=== PATIENT | male | born 1945 | race Caucasian/White ===

== ENCOUNTER 2019-08-18 14:39 | Outpatient (CLI) | payer OTHER, SELFPAY ==
--- NOTE | 2019-08-18 12:00 | DI.RAD_ITS ---
INDICATION: CYST, L72.9. PALPABLE LUMP. COMPARISON: No exams were available for comparison TECHNIQUE: 2D digital imaging was performed. FINDINGS: Examination of the left forearm reveals a small soft tissue prominence involving the dorsal aspect of the proximal forearm. There is no evidence of a foreign body. No intrinsic bony abnormality is see n. Note is made of severe degenerative changes involving wrist. IMPRESSION:
== END 2019-08-18 14:59 ==
PROVIDERS: PCP Physician Assistant Medical; Visit Provider Physician Assistant Medical
DX: R22.32 Localized swelling, mass and lump, left upper limb (principal); M79.89 Other specified soft tissue disorders; M19.032 Primary osteoarthritis, left wrist
CPT/HCPCS: 73090

== ENCOUNTER 2020-09-19 01:21 | Outpatient (CLI) | payer OTHER, SELFPAY ==
--- NOTE | 2020-09-19 09:58 | DI.RAD_ITS ---
EXAM: XR SHOULDER RT COMPLETE 2+V CLINICAL HISTORY: ARTHRITIS, M13.80. TECHNIQUE: 2D digital imaging was performed. COMPARISON: CR CHEST 2 VIEWS PA,LAT from 04/03/2017 FINDINGS: There is spurring from the AC joint and tip of the acromion. There is also prominent spurring from t he glenoid. A few small subchondral cysts are noted in the region of the greater tuberosity. A calc ification is seen adjacent to the tip of the distal clavicle. IMPRESSION: Degenerative changes. DATA REPOSITORY: RADIATION DOSE DELIVERED:
== END 2020-09-19 01:41 ==
PROVIDERS: PCP Physician Assistant Medical; Visit Provider Orthopaedic Surgery
DX: M19.011 Primary osteoarthritis, right shoulder (principal); M77.8 Other enthesopathies, not elsewhere classified
CPT/HCPCS: 73030

== ENCOUNTER 2020-10-12 10:03 | Outpatient (CLI) | payer OTHER, SELFPAY ==
--- NOTE | 2020-10-12 08:45 | DI.RAD_ITS ---
EXAM: XR HEEL RT OS CALCIS CLINICAL HISTORY: pain. TECHNIQUE: 2D digital imaging was performed. COMPARISON: No exams were available for comparison FINDINGS: BONES: No acute fracture is present. No bony destructive lesion is seen. There is a small plantar ca lcaneal spur. There is a small enthesophyte at the Achilles insertion site. JOINTS: No dislocation present. SOFT TISSUE: Vascular calcifications are present. IMPRESSION: 1. Small calcaneal spur. 2. Atherosclerosis. DATA REPOSITORY: RADIATION DOSE DELIVERED:
== END 2020-10-12 10:23 ==
PROVIDERS: PCP Physician Assistant Medical; Referring Provider Physician Assistant Medical; Visit Provider Orthopaedic Surgery
DX: M77.31 Calcaneal spur, right foot (principal); I70.90 Unspecified atherosclerosis
CPT/HCPCS: 73650

== ENCOUNTER → 2020-12-26 09:37 | Outpatient (BNVA) | payer OTHER, SELFPAY | PROVIDERS: PCP Physician Assistant Medical; Referring Provider Physician Assistant Medical; Visit Provider Student in an Organized Health Care Education/Training Program | DX: M17.11 Unilateral primary osteoarthritis, right knee (principal); M25.561 Pain in right knee | CPT/HCPCS: 99214 ==

== ENCOUNTER 2020-12-26 11:10 | Outpatient (CLI) | payer OTHER, SELFPAY ==
--- NOTE | 2020-12-26 10:45 | DI.RAD_ITS ---
EXAM: XR STANDING ALIGNMENT CLINICAL HISTORY: knee pain. TECHNIQUE: 2D digital imaging was performed. COMPARISON: CR RT HIP COMPLETE AP PELVIS from 07/15/2014 FINDINGS: There is no evidence of acute pelvic fracture. Small calcification off the superior aspect of the gr eater trochanter of the left hip is unchanged from 2014. No significant progression in hip joint spa ce narrowing when compared to 6 years ago. Femurs are intact. There is evidence of ACL surgery in the right knee. Bilateral knee osteoarthriti s noted, more so on the right side and most evident in the medial compartment. Also significant dege nerative changes in the medial compartment of the opposite-left knee. At the level of the ankles had there is degenerative subarticular cyst versus ostial chondral defect in the medial talar dome on the right side and no similar findings in the left talar dome. IMPRESSION: DATA REPOSITORY: RADIATION DOSE DELIVERED:
--- NOTE | 2020-12-26 10:45 | DI.RAD_ITS ---
EXAM: XR KNEE RT 3V AP,LAT,ELAN CLINICAL HISTORY: knee pain. TECHNIQUE: 2D digital imaging was performed. COMPARISON: No exams were available for comparison FINDINGS: There is no evidence of acute fracture. There is evidence of prior ACL surgery with an ACL channel a nd a fastener plate flush with the cortex of the diaphysis-metaphysis junction of the distal right fe mur. There is advanced narrowing of the medial compartment of the knee as well as marginal osteophytes. A dvanced degenerative changes are also noted in the patellofemoral compartment. Moderate degenerative changes in the lateral compartment. There appears to be a joint effusion as seen on the lateral vie w. Vascular calcification in the popliteal artery noted as well as runoff vessels of the calf. IMPRESSION: Advanced degenerative changes in the right knee. Previous right knee ACL surgery. Right knee joint effusion noted. DATA REPOSITORY: RADIATION DOSE DELIVERED:
== END 2020-12-26 11:30 ==
PROVIDERS: PCP Physician Assistant Medical; Referring Provider Physician Assistant Medical; Visit Provider Physician Assistant Surgical
DX: M17.11 Unilateral primary osteoarthritis, right knee (principal); M25.461 Effusion, right knee; M25.561 Pain in right knee
CPT/HCPCS: 73562; 99214; 77073

== ENCOUNTER 2021-01-20 02:02 | Outpatient (CLI) | payer OTHER, SELFPAY ==
[2021-01-21 13:56] LABS: COVID-19 RT-PCR UVMMC Result Negative (Negative)
== END 2021-01-20 02:03 | disposition home or self-care (01) ==
LOC: LBO 02:02
PROVIDERS: PCP Physician Assistant Medical; Visit Provider Student in an Organized Health Care Education/Training Program
DX: Z20.822 Contact with and (suspected) exposure to COVID-19 (principal); Z01.818 Encounter for other preprocedural examination
CPT/HCPCS: U0003

== ENCOUNTER 2021-01-20 02:42 | Outpatient (CLI) | payer OTHER, SELFPAY ==
[2021-01-20 09:37] LABS: HCT 37.2 % (40.0-50.0); HGB 13.1 g/dL (13.5-17.5); MCHC 35.2 % (32.0-36.0); MCV 96.6 fL (80-95); MPV 9.1 fL (8.0-11.0); Platelet Count 137 10^3/uL (130-400); RBC 3.85 10^6/uL (4.36-5.78); RDW 11.6 % (11.8-14.1); RDW-SD 40.7 fL; WBC 4.54 10^3/uL (4.4-10.8)
[2021-01-20 10:09] LABS: Anion Gap 8.5 mmol/L (3-11); BUN 16 mg/dL (7-18); CO2 28.5 mmol/L (21.0-32.0); CREATININE 0.8 mg/dL (0.70-1.30); Calcium 8.6 mg/dL (8.5-10.1); Chloride 105 mmol/L (98-107); Glucose 122 mg/dL (74-106); Potassium 3.9 mmol/L (3.5-5.1); Sodium 142 mmol/L (136-145)
== END 2021-01-20 02:43 | disposition home or self-care (01) ==
LOC: LBO 02:42
PROVIDERS: PCP Physician Assistant Medical; Visit Provider Student in an Organized Health Care Education/Training Program
DX: M25.561 Pain in right knee (principal); M17.11 Unilateral primary osteoarthritis, right knee; Z01.812 Encounter for preprocedural laboratory examination
CPT/HCPCS: 36415; 80048; 85027

== ENCOUNTER 2021-01-24 09:27 | Inpatient (IN) | payer OTHER, SELFPAY ==
[2021-01-24] VITALS (14 sets, daily range): BP systolic 112–184; BP diastolic 63–75; PULSE 45–61; RESP 10–19; TEMP 35–36.5; O2SAT 95–99
[2021-01-24] MEDS: Gabapentin 300 MG CAP PO ×2 (10:47→22:50)
[2021-01-24] MEDS: Celecoxib 200 MG CAP 400 MG PO (10:47)
[2021-01-24] MEDS: Acetaminophen 500 MG TAB 1000 MG PO ×2 (10:47→20:07)
[2021-01-24] MEDS: Lactated Ringers 1,000 ML 80 ML IV ×2 (11:00→20:05)
[2021-01-24] MEDS: ceFAZolin 2 GM/50 ML BAG IVPB (13:12)
[2021-01-24] MEDS: Ketorolac 30 MG/ML VIAL (14:36)
[2021-01-24] MEDS: Bupivacaine 0.25% Pres-Free 30 ML VIAL (14:36)
[2021-01-24] MEDS: Normal Saline 20 ML VIAL (14:36)
[2021-01-24] MEDS: fentaNYL 100 MCG/2 ML VIAL IVP ×2 (16:04→16:16)
[2021-01-24] MEDS: HYDROmorphone 2 MG/ML VIAL IVP (16:33)
--- NOTE | 2021-01-24 17:19 | W.PM.OP ---
Date of service: 01/24/21 Time of Service: 15:09 Operative Note Operative Note DATE OF PROCEDURE: 01/24/21 PRE-OP DIAGNOSIS: Right Knee Osteoarthritis POST-OP DIAGNOSIS: same PROCEDURE: Right Total Knee Replacement SURGEON: Zackery Oconnor [facility] OT: Pratima Rubio ANESTHESIA TYPE: Spinal Refer to Anesthesia Record ESTIMATED BLOOD LOSS: 300 PATHOLOGY: none sent TOURNIQUET TIME: 0 COMPLICATIONS: None Patient was transported to: PACU Patient's condition: stable Implants: 1. Depuy Attune Cementless Cruciate Retaining Femoral Component, Size 6 2. Depuy Attune Cementless Rotating Platform Tibial Component, Size 5 3. Depuy Attune 6x6 CR/RP Poly 4. Depuy Attune Patellar Component, Size 38mm Indications: I have seen Chaparro in clinic for symptoms of knee arthritis, confirmed with radiographic findings. He has exhausted nonoperative methods and was having significant limitations in daily function and desired better function and less pain. I discussed the technical details of a knee replacement. I explained the risks of the procedure to include, but not limited to, bleeding, infection, pain, stiffness, fracture, damage to nerves and vessels, damage to muscles and tendons, loosening, need for repeat procedure, blood clot and cardiopulmonary demise. Despite these risks, Chaparro elected to proceed. Findings: There was significant signs of arthritis throughout the knee, most involving the medial compartment as well as patellofemoral compartment. ACL reconstruction was mostly retorn. Procedure Description: Chaparro was greeted in the preoperative holding area where the correct side was identified and marked. The consent was reviewed with the patient and signed. The history and physical was updated. All questions were answered. Preoperative medications were administered: Acetaminophen 1000mg, Celebrex 400mg, and Gabapentin 300mg. An adductor canal block was then administered by the anesthesia team in the PACU. He was taken back to the operating room. A spinal anesthestic was then administered. The patient was placed into the supine position on the operating room table. A nonsterile tourniquet was placed high onto the leg but only used for cementing. Posts were placed for positioning during the procedure. All bony prominences were well padded. Prophylactic antibiotics in the form of Cefazolin were administered. 1g of Tranxemic Acid was given intravenously within 30 minutes of incision. The right leg was then prepped with Chloraprep and draped in a standard fashion with impervious stockinette. A second prep with Chloraprep was performed prior to application of Iodine impregnated skin protection. A timeout to confirm correct identity, side and site, procedure, allergies, anesthesia, and medical concerns was performed. With the knee in some flexion, a midline incision was made overlying the knee. Full thickness skin flaps were raised once the extensor mechanism was encountered. These were raised medially and laterally. Any bleeding was controlled with electrocautery. Once the extensor mechanism was fully exposed, a medial parapatellar arthrotomy was performed in a flexed position. All bleeding from the arthrotomy and the geniculate arteries was coagulated. A medial subperiosteal peel was performed with electrocautery to the midcoronal plane. The fat pad was removed while keeping the patellar tendon protected. There was significant scarring of the fat pad which was excised. The synovium was also quite dnse throughout the knee. A partial synovectomy was performed to free up the retinaculum and overlying extensor mechanism. The ACL and PCL were resected and the anterior horn of the lateral meniscus was transected. There were only a few fibers of the ACL reconstruction still intact. The knee was then flexed with the patella everted. Large osteophytes from the tibia were removed. Large osteophytes from the femur were removed. Using a step drill, and based on preoperative templating, the femoral canal was entered. This was done with a step drill without any difficulty. The intramedullary distal femoral cut guide was inserted, set to a 5 degree valgus cut and 9mm cut thickness. The distal femoral cut guide was then held in position and pinned. With the soft tissues protected, the distal cut was performed. This was passed over a few times to ensure a planar cut. I then turned attention to the tibia. The extramedullary guide was placed onto the leg. The distal aspect was slid medial to adjust for position of center of ankle and stay in line with shaft of the tibia. Approximately 3-5 degrees of posterior slope was kept in the proximal cutting guide. The center of the guide was aligned with the PCL. The stylus was used to assess cut thickness. The medial side, most involved side, was set for a 4mm cut. This was then held in position and pinned into place with 2 additional pins and a cross pin for stability. The medial and lateral collateral ligaments were protected and the cut was performed. With this completed, it was assessed and noted to be of appropriate dimensions. The guide was removed. A spacer block was inserted and the knee was brought into extension. The 6mm spacer block provided full extension, without hyperextension and with stability of both the medial and lateral collateral ligaments was assessed. The pins from the femur and the tibia were then removed. The distal femur was then sized. The anterior stylus was placed onto the lateral ridge of the anterior femur. This indicated a size 6 femur. The external rotation of the guide was adjusted to 3 degrees to match the epicondylar axis, perpendicular to Vieques?s line. The 4-in-1 cutting guide was the placed. The posterior medial femur cut was evaluated and appeared of good thickness. The spacer block was inserted underneath the cutting guide and stability was confirmed in 90 degrees of flexion. An juan wing was used to confirm appropriate position of the anterior cut to avoid notching. This cutting guide was ensured to be flush on the cut surface and then pinned into place with headed pins. While protecting the soft tissues, quad tendon, and collateral ligaments, the anterior and posterior cuts were performed with a saw. The central two pins were removed and the posterior and anterior chamfers were cut next. The notch-cutting guide was placed. This was pinned to lateralize the femoral component as much as possible while keeping it flush on the cut surface. This was then pinned into position. A reciprocating saw was used to make the notch cut. A rasp smoothed the cut surfaces. The medial and lateral menisci were removed. A trial femoral component was then inserted, impacted down to the cut surfaces, and the lug holes were drilled. A provisional trial tibial component was placed and the knee was brought through range of motion. There was noted to be excellent extension and flexion. There was no significant instability. The patella was tracking without thumbs. A size 6mm polyethylene component provided the best range of motion and stability with less than 2mm gapping with medial and lateral stress and full extension without significant hyperextension. The tibial cut surface was fully exposed. The tibia was then sized as a 5. The tibia had been previously marked during trialing to correspond to the center of the tibial component to help with rotation. The trial was aligned to this pratima, approximately rotated to the medial 1/3rd of the tibial tubercle. The trial was pinned into place. The tibia was prepared with a reamer and a keel punch and lug holes. The knee was then brought into extension and the patella was measured as 32mm. Using the patellar clamp and cut guide, this was resected to a flat surface with at least 13mm of thickness remaining. The size 38 patella fit the best. This was oriented and then clamped into position. The lugs were drilled. The trial components were removed. The final components were opened on the back table. The periosteal and capsular tissues, especially posteriorly, around the knee were then systematically injected with a periarticular cocktail consisting of 50cc 0.25% Marcaine, 30mg Ketorolac, 20cc of Exparal and 50cc of injectable saline. The knee was thoroughly irrigated with a pulse lavage and dried. Irrisept was also used to irrigate the tissues. On the back table, with the implants opened, the cement was mixed. One batch of high viscosity cement was prepared with vacuum assistance. After the cement was ready a small amount was placed on the cut surface of the patella and the patellar button was clamped into position and held. During this process attention was turned to the gutters of the knee and for all interfaces for any excess cement. While the cement was hardening, the cementless knee components were placed. Starting with the tibial component, the tibia was subluxed anteriorly and the lug holes of the component were lined up. The tibia was then impacted with an impactor and mallet until the tibial component was in contact with the tibia. The final polyethylene component was inserted. Then, the femoral component was inserted. The lug holes were aligned and the component was impacted into position. The knee was irrigated with Irrisept chlorhexadine solution. This was allowed to sit in the knee for 3 minutes. After the cement had finally cured, approximately 15min, the clamp was removed from the patella and the knee was taken through range of motion. The patella was tracking with a no-thumbs technique. The capsule was then reapproximated with a No. 1 Vicryl at multiple locations. The capsule was finally closed with a No. 2 Stratafix, barbed suture. The second dosing of 1g TXA was started. Deep tissues were then reapproximated with 0 Vicryl and 2-0 Vicryl. The skin was closed with a running 3-0 Monocryl in a subcuticular fashion. This was reinforced with skin glue. A Mepilex silver dressing was applied along with a [id number] BASSEM wrap. A CryoCuff was applied. Chaparro was transferred to the hospital bed without difficulty an suffering no apparent complication. Chaparro has a good prognosis. Physical therapy will start today and without restrictions, weight-bearing as tolerated. His home dose of Eliquis will be used for DVT prophylaxis.
[2021-01-24] MEDS: ceFAZolin 1 GM/50 ML BAG IVPB (20:06)
[2021-01-24] MEDS: Apixaban 5 MG TAB PO (20:09)
[2021-01-24] MEDS: Celecoxib 200 MG CAP PO (20:09)
[2021-01-25] MEDS: ceFAZolin 1 GM/50 ML BAG IVPB (03:43)
[2021-01-25 03:44] VITALS: BP 131/51; PULSE 66; RESP 17; TEMP 36.6; O2SAT 96
[2021-01-25 07:24] VITALS: BP 138/73; PULSE 60; RESP 18; TEMP 36.5; O2SAT 97
--- NOTE | 2021-01-25 07:36 | W.PM.DS.N ---
Documented by User: Tawnya Kim 01/24/21 10:02 DS: Diagnosis Discharge Diagnosis (1) Post-traumatic osteoarthritis of right knee: Status: Acute Discharge Plan Disposition Patient Disposition: HOME Condition: Good Discharge Details Reason For Visit: Right knee DJD Admit Date/Time: 01/24/21 09:27 Admit Provider: Zackery Oconnor Attending Provider: Zackery Oconnor Primary Care Provider: Katia Valderrama Hospital Course Hospital Course: Patient was admitted to the medical/surgical floor following the procedure. The surgery was tolerated well without any notable medical, surgical, or anesthetic complications. Mobilization began post-operatively. They were voiding spontaneously. Vitals were stable. Physical therapy worked with the patient and was cleared for discharge home. No acute medical issues. Pain was controlled on oral regimen. Home Meds and New Rx's Prescriptions: New celecoxib [Celebrex] 200 mg capsule 200 mg PO BID Qty: 30 RF: 0 acetaminophen 500 mg tablet 500 mg PO Q6H PRN (Reason: pain) Qty: 60 RF: 2 pantoprazole 40 mg tablet,delayed release (DR/EC) 40 mg PO DAILY 30 Days Qty: 30 RF: 0 docusate sodium [Colace] 100 mg capsule 100 mg PO BID Qty: 30 RF: 0 gabapentin 300 mg capsule 300 mg PO QHS Qty: 14 RF: 0 oxycodone 5 mg tablet 5 mg PO Q4H PRN (Reason: severe post-operative pain) Qty: 18 RF: 0 Continued terazosin 5 MG capsule 5 mg PO DAILY RF: 0 metoprolol tartrate 100 MG tablet 100 mg PO DAILY RF: 0 cyanocobalamin (vitamin B-12) [Vitamin B-12] 1,000 MCG tablet 1,000 mcg PO DAILY RF: 0 ascorbic acid (vitamin C) [Vitamin C] 500 MG tablet 500 mg PO DAILY RF: 0 propafenone 225 MG tablet 225 mg PO TID RF: 0 valsartan 320 MG tablet 320 mg PO DAILY RF: 0 niacin 500 MG capsule, extended release 500 mg PO QID RF: 0 Eliquis 5 MG tablet 5 mg PO BID RF: 0 omeprazole 20 MG capsule,delayed release(DR/EC) 20 mg PO DAILY RF: 0 albuterol sulfate 8.5 GM HFA aerosol inhaler 2 puff Inhalation Q4H PRN PRNQty: 1 RF: 0 (DME) AeroChamber Plus Z Stat Sm Msk 1 EACH spacer 1 ea Miscellaneous Q4H PRN Qty: 1 RF: 0 No Action rosuvastatin 40 mg Tablet 20 mg PO .NOON RF: 0 Discharge Instructions Additional Instructions: Total Knee Discharge Instructions Activity: The most important activity is to walk. You should try to take short walks a few times a day. It is important that when resting you work on keeping the knee straight. Avoid putting a pillow behind the knee as this will encourage flexion. Work on range of motion exercises as provided by Physical Therapy. - Start outpatient physical therapy within 2 weeks. - You should wear the TORREY hose on both legs for 2 weeks. You may remove these at night. You may also use any compression sock in place of the TORREY hose. Dressing: You may remove the Vernon wrap on your leg 2 days after your surgery and put on the TORREY stocking given to you from the hospital. Keep the surgical dressing (underneath the VERNON wrap) in place for at least one week. After the first week it may be removed and replaced with light gauze and tape or nothing. The wound and dressing may get wet after 3 days but avoid soaking the dressing or otherwise it will need to be changed. Many people prefer covering the dressing with cling wrap (saran wrap) to minimize it from getting soaked. If it gets wet, just pat dry. If it starts to peel off then it will need to be changed. Medications: - You should take Tylenol and anti-inflammatory Celebrex as your primary pain control medications. If the Celebrex is too expensive or not covered, please call the office for another alternative (Advil/Ibuprofen or Naproxen/Aleve) - You have been prescribed a stronger pain medication Oxycodone for breakthrough pain, take as needed as prescribed. - You have also been prescribed a stomach acid reduction agent Pantoprozole to help reduce stomach acid and reflux. - You have been prescribed Gabapentin to take at night for restlessness and nerve pain. - You will be taking your regular Eliquis for DVT prevention. - If you have constipation you should take Colace (which was prescribed) or Miralax (which can be purchased [id number]). It takes most people 3-4 days to have a bowel movement. Follow-up: 2 weeks If you have any acute concerns or questions, please do not hesitate to contact the office at [phone]. You may contact Dr. Oconnor with any questions after hours through the hospital at [phone] or on his cell phone at [phone]. Referrals: Zackery Oconnor MD [ [facility] STAFF PHYSICIAN] - Activity:: Activity as Tolerated Equipment/Supplies:: Walker Diet:: As Tolerated Discharge Orders Discharge Orders: Discharge Order (Routine); Ordered 01/25/21 Ordered By: Zackery Oconnor DS: Data Vitals/I&O Vitals and I&O: Intake & Output 01/23/21 01/23/21 01/24/21 11:59 23:59 11:59 Weight 112.945 [facility] Medical History Aortic stenosis Atrial flutter AV block, 1st degree Foreign body of right shoulder Shrapnel GERD (gastroesophageal reflux disease) Hyperlipidemia Hyperlipidemia Hypertension Paroxysmal A-fib Sleep apnea Surgical History S/P ACL reconstruction (~2004) Right: 2004 Social History Smoking/Tobacco Use Status: Former Tobacco Use Quit Date: 12/02/67 Smoking risk assessment performed?: Yes Alcohol Intake: current Alcohol Intake frequency: 0-2 drinks per day Alcohol type: beer Drug use: Never Substance use type: does not use Current gender identity: male Do you feel safe at home: Yes Do you feel safe in your relationship?: Yes Documented by User: Zackery Oconnor MD 01/25/21 07:36 Date of service: 01/25/21 Time of Service: 07:35 Discharge Plan Disposition Patient Disposition: HOME Condition: Good Discharge Details Reason For Visit: Right knee DJD Admit Date/Time: 01/24/21 09:27 Admit Provider: Zackery Oconnor Attending Provider: Zackery Oconnor Primary Care Provider: Katia Valderrama Hospital Course Hospital Course: Patient was admitted to the medical/surgical floor following the procedure. The surgery was tolerated well without any notable medical, surgical, or anesthetic complications. Mobilization began post-operatively. They were voiding spontaneously. Vitals were stable. Physical therapy worked with the patient and was cleared for discharge home. No acute medical issues. Pain was controlled on oral regimen. Home Meds and New Rx's Prescriptions: New celecoxib [Celebrex] 200 mg capsule 200 mg PO BID Qty: 30 RF: 0 acetaminophen 500 mg tablet 500 mg PO Q6H PRN (Reason: pain) Qty: 60 RF: 2 pantoprazole 40 mg tablet,delayed release (DR/EC) 40 mg PO DAILY 30 Days Qty: 30 RF: 0 docusate sodium [Colace] 100 mg capsule 100 mg PO BID Qty: 30 RF: 0 gabapentin 300 mg capsule 300 mg PO QHS Qty: 14 RF: 0 oxycodone 5 mg tablet 5 mg PO Q4H PRN (Reason: severe post-operative pain) Qty: 18 RF: 0 Continued terazosin 5 MG capsule 5 mg PO DAILY RF: 0 metoprolol tartrate 100 MG tablet 100 mg PO DAILY RF: 0 cyanocobalamin (vitamin B-12) [Vitamin B-12] 1,000 MCG tablet 1,000 mcg PO DAILY RF: 0 ascorbic acid (vitamin C) [Vitamin C] 500 MG tablet 500 mg PO DAILY RF: 0 propafenone 225 MG tablet 225 mg PO TID RF: 0 valsartan 320 MG tablet 320 mg PO DAILY RF: 0 niacin 500 MG capsule, extended release 500 mg PO QID RF: 0 Eliquis 5 MG tablet 5 mg PO BID RF: 0 omeprazole 20 MG capsule,delayed release(DR/EC) 20 mg PO DAILY RF: 0 albuterol sulfate 8.5 GM HFA aerosol inhaler 2 puff Inhalation Q4H PRN PRNQty: 1 RF: 0 (DME) AeroChamber Plus Z Stat Sm Msk 1 EACH spacer 1 ea Miscellaneous Q4H PRN Qty: 1 RF: 0 No Action rosuvastatin 40 mg Tablet 20 mg PO .NOON RF: 0 Discharge Instructions Additional Instructions: Total Knee Discharge Instructions Activity: The most important activity is to walk. You should try to take short walks a few times a day. It is important that when resting you work on keeping the knee straight. Avoid putting a pillow behind the knee as this will encourage flexion. Work on range of motion exercises as provided by Physical Therapy. - Start outpatient physical therapy within 2 weeks. - You should wear the TORREY hose on both legs for 2 weeks. You may remove these at night. You may also use any compression sock in place of the TORREY hose. Dressing: You may remove the Vernon wrap on your leg 2 days after your surgery and put on the TORREY stocking given to you from the hospital. Keep the surgical dressing (underneath the VERNON wrap) in place for at least one week. After the first week it may be removed and replaced with light gauze and tape or nothing. The wound and dressing may get wet after 3 days but avoid soaking the dressing or otherwise it will need to be changed. Many people prefer covering the dressing with cling wrap (saran wrap) to minimize it from getting soaked. If it gets wet, just pat dry. If it starts to peel off then it will need to be changed. Medications: - You should take Tylenol and anti-inflammatory Celebrex as your primary pain control medications. If the Celebrex is too expensive or not covered, please call the office for another alternative (Advil/Ibuprofen or Naproxen/Aleve) - You have been prescribed a stronger pain medication Oxycodone for breakthrough pain, take as needed as prescribed. - You have also been prescribed a stomach acid reduction agent Pantoprozole to help reduce stomach acid and reflux. - You have been prescribed Gabapentin to take at night for restlessness and nerve pain. - You will be taking your regular Eliquis for DVT prevention. - If you have constipation you should take Colace (which was prescribed) or Miralax (which can be purchased [id number]). It takes most people 3-4 days to have a bowel movement. Follow-up: 2 weeks If you have any acute concerns or questions, please do not hesitate to contact the office at [phone]. You may contact Dr. Oconnor with any questions after hours through the hospital at [phone] or on his cell phone at [phone]. Referrals: Zackery Oconnor MD [ [facility] STAFF PHYSICIAN] - Activity:: Activity as Tolerated Equipment/Supplies:: Walker Diet:: As Tolerated Discharge Orders Discharge Orders: Discharge Order (Routine); Ordered 01/25/21 Ordered By: Zackery Oconnor DS: Summary Time Spent with Patient providing and/or coordinating discharge services: Less than 30 minutes Status at Discharge Functional status at discharge: uses cane/walker Overall status at discharge: patient is progressing back to baseline Mental Status: mental status grossly normal Speech and Movement: speech and movement normal Mood: congruent mood Affect: normal affect Exam Psych Mental Status: mental status grossly normal Speech and Movement: speech and movement normal Mood: congruent mood Affect: normal affect [facility] Medical History Aortic stenosis Atrial flutter AV block, 1st degree Foreign body of right shoulder Shrapnel GERD (gastroesophageal reflux disease) Hyperlipidemia Hyperlipidemia Hypertension Paroxysmal A-fib Sleep apnea Surgical History S/P ACL reconstruction (~2004) Right: 2004 Social History Smoking/Tobacco Use Status: Former Tobacco Use Quit Date: 12/02/67 Smoking risk assessment performed?: Yes Alcohol Intake: current Alcohol Intake frequency: 0-2 drinks per day Alcohol type: beer Drug use: Never Substance use type: does not use Current gender identity: male Do you feel safe at home: Yes Do you feel safe in your relationship?: Yes
[2021-01-25] MEDS: Valsartan 80 MG TAB 320 MG PO (08:24)
[2021-01-25] MEDS: Ascorbic Acid 500 MG TAB PO (08:25)
[2021-01-25] MEDS: Apixaban 5 MG TAB PO (08:25)
[2021-01-25] MEDS: Acetaminophen 500 MG TAB 1000 MG PO (08:25)
[2021-01-25] MEDS: Cyanocobalamin 500 MCG TAB 1000 MCG PO (08:25)
[2021-01-25] MEDS: Celecoxib 200 MG CAP PO (08:25)
--- NOTE | 2021-01-25 08:57 | IN_ITS ---
Date of service: 01/25/21 Time of Service: 08:57 PT Notes Visit Reasons: Right knee DJD Physical Therapy Inpatient Initial Evaluation Date: 01/25/2021 Referring Doctor: SRIKANTH Coker PT Orders: PT CONSULT: S/P Ortho surgery Precautions: Fall. Standard. WBAT on the R LE. Patient Profile/Admitting Diagnosis: Neelima is a 75-year-old male with postulated osteoarthritis of the right knee and is status post right total knee arthroplasty on postoperative day 1. PMHX: Medical History (Updated 01/17/21 @ 15:38 by SRIKANTH Rojas) Aortic stenosis Foreign body of right shoulder Shrapnel Paroxysmal A-fib Sleep apnea Surgical History S/P ACL reconstruction (~2004) Right: 2004 Social History/Home Situation: Lives with in a private home with 2 steps to enter without rails. Independent with all mobility ADL performance. Equipment Owned/DME: Front wheeled walker, bilateral axillary crutches, walking sticks, single-point cane, [id number] commode Subjective: Agreeable to PT consult. Denies pain, headache, dizziness throughout PT session. Objective: General Observation: Supine in bed. Vernon wraps on left LE. Cryocuff on left knee. Mental Status: Alert and oriented x4 Pain: None reported ROM: Right Upper Extremity: Shoulder Flexion WFL. Shoulder abduction WFL. Elbow flexion WFL. Wrist flexion WFL. Opening and closing of hand WFL. Left Upper Extremity: Shoulder Flexion WFL. Shoulder abduction WFL. Elbow flexion WFL. Wrist flexion WFL. Opening and closing of hand WFL. Right Lower Extremity: Hip flexion WFL. Hip abduction WFL. Knee flexion WFL. Ankle dorsiflexion WFL. Ankle plantarflexion WFL. Left Lower Extremity: Hip flexion WFL. Hip abduction WFL. Knee flexion 10 degrees to 95 degrees. Knee extension -10 degrees. Ankle dorsiflexion WFL. Ankle plantarflexion WFL. Strength: Right Upper Extremity: Shoulder flexors 5/5. Shoulder abductors 5/5. Elbow flexors 5/5. Elbow extensors 5/5. Slice Cutting Machine Operator Helper strong. Left Upper Extremity: Shoulder flexors 5/5. Shoulder abductors 5/5. Elbow flexors 5/5. Elbow extensors 5/5. Slice Cutting Machine Operator Helper strong. Right Lower Extremity: Hip flexors 5/5. Hip abductors 5/5. Knee flexors 5/5. Knee extensors 5/5. Ankle dorsiflexors 5/5. Ankle plantarflexors 5/5. Left Lower Extremity:Hip flexors 5/5. Hip abductors 5/5. Knee flexors 3-/5. Knee extensors 3-/5. Ankle dorsiflexors 5/5. Ankle plantarflexors 5/5. Sensation: Intact as to pain and pressure on bilateral lower extremities. Bed Mobility/Transfers: Rolling independent Supine to sit independent Sit to supine independent Sit to stand independent Stand to sit independent Bed to chair supervision Chair to bed supervision Gait: Guided patient through level surface ambulation of 300 feet using front wheeled walker with standby assist, step through gait pattern with WBAT on the right LE with no report of pain, dizziness, and chest pain. THERA EX: Reviewed/educated on home exercise program for TKA protocol that can be safely done at home. Exercise packet provided. Emphasized breaking down supine, seated, and standing level exercises several times a day with lesser repetition and combining with walking activity to minimize fatigue and increase pain level. Balance: Static Sitting: Normal Dynamic Sitting: Normal Static Standing: Good Dynamic Standing: Fair Special Tests: Mobility Limitations Standardized Measure [facility] 6 clicks Basic Mobility Inpatient Short Form: Raw Score: 23 CMS Score: 11% deficit Informed Consent/Education: Patient instructed in purpose of PT consult and plan of care. Assessment: Right TKA on POD 1. Chaparro demonstrates the need for a front- wheeled walker for all level surface ambulation and bilateral axillary crutches for his entry steps to reduce fall risk. Patient presents with clinical signs and symptoms consistent with current/admitting diagnoses that have resulted to mobility limitations, gait instability, generalized weakness, and impairment of motor control as demonstrated by the following impairment level findings: 1. Decreased strength to right knee major muscle groups 2. Impaired standing balance 3. Impaired activity tolerance 4. Limitation of joint range of motion in right knee Impairments are contributing to the following functional limitations: 1. Inability to safely ambulate without assistive device 2. Increase completion time for mobility ADL performance Patient is assessed as a 50961 moderate complexity based on the following: History: 75-year-old male in with impairment level findings, functional limitations, and past medical history as indicated above Examination: Demonstrable impairment in strength, balance, and mobility level with underlying impairments and functional limitations as documented above Presentation:Evolving Decision Makin moderate complexity Goals: N/A. PT evaluation 1-2 treatment sessions only for mobility ADL retraining and HEP instruction. Plan of Care/Treatment Plan: N/A. PT evaluation 1-2 treatment sessions only for mobility ADL retraining and HEP instruction. DISCHARGE RECOMMENDATIONS: Home when medically cleared by orthopedic surgeon. Outpatient PT service to facilitate return to community ambulation without an assistive device. TREATMENT CODE/TIME: 81905 x 30 minutes, 41631 x 25 minutes 8:57 AM. Thank you for the opportunity to participate in the care of this patient. Ruma Gonzáles PT, DPT, CLT [facility] [place], [place]
--- NOTE | 2021-01-25 14:21 | CHAPLAIN ---
Chaparro was waiting to be discharged when I visited. He was friendly and engaged in a short conversation before he phoned someone for a ride home.
--- NOTE | 2021-01-25 18:30 | PDOC.CMDIS ---
- If Service Date Differs Date of service: 01/25/21 Time of Service: 18:30 LACE Index Scoring Tool - Questions: Length of Stay (in days): 2 Acuity (Admit via E.D.?): No E.D. Visits: 0 - Answers: Total Score: 2 Risk of Readmission: Low Risk Care Management Discharge Reason for Hospitalization: Right Knee DJD Discharge Plan: CM met with Chaparro as he was about to leave- he was dressed and ready to go. He stated that he had called his , and was waiting for her to pick him up. He is indpenendent in the community and does not require any services. He was pleasant and engaged in converstation. He will follow up with Ortho, his PCP and discharge plan of care. His will be driving him home via private vehicle, and he will have outpt PT after his follow up with Ortho. Patient/Family Education Needs: Review discharge instructions regarding activity levels and medications, discussion of self care needs and goals of care.
--- NOTE | 2021-01-26 08:22 | INDS_ITS ---
PT Notes Visit Reasons: Right knee DJD Physical Therapy Inpatient Discharge Summary Date: 01/25/2021 Dates of Service: 01/25/2021 only Referring Doctor: SRIKANTH Coker PT Orders: PT CONSULT: S/P Ortho surgery Precautions: Fall. Standard. WBAT on the R LE. Patient Profile/Admitting Diagnosis: Neelima is a 75-year-old male with postulated osteoarthritis of the right knee and is status post right total knee arthroplasty on postoperative day 1. PMHX: Medical History (Updated 01/17/21 @ 15:38 by SRIKANTH Rojas) Aortic stenosis Foreign body of right shoulder Shrapnel Paroxysmal A-fib Sleep apnea Surgical History S/P ACL reconstruction (~2004) Right: 2004 Social History/Home Situation: Lives with in a private home with 2 steps to enter without rails. Independent with all mobility ADL performance. Equipment Owned/DME: Front wheeled walker, bilateral axillary crutches, walking sticks, single-point cane, [id number] commode Subjective: Agreeable to PT consult. Denies pain, headache, dizziness throughout PT session. Objective: General Observation: Supine in bed. Vernon wraps on left LE. Cryocuff on left knee. Mental Status: Alert and oriented x4 Pain: None reported ROM: Right Upper Extremity: Shoulder Flexion WFL. Shoulder abduction WFL. Elbow flexion WFL. Wrist flexion WFL. Opening and closing of hand WFL. Left Upper Extremity: Shoulder Flexion WFL. Shoulder abduction WFL. Elbow flexion WFL. Wrist flexion WFL. Opening and closing of hand WFL. Right Lower Extremity: Hip flexion WFL. Hip abduction WFL. Knee flexion WFL. Ankle dorsiflexion WFL. Ankle plantarflexion WFL. Left Lower Extremity: Hip flexion WFL. Hip abduction WFL. Knee flexion 10 degrees to 95 degrees. Knee extension -10 degrees. Ankle dorsiflexion WFL. Ankle plantarflexion WFL. Strength: Right Upper Extremity: Shoulder flexors 5/5. Shoulder abductors 5/5. Elbow flexors 5/5. Elbow extensors 5/5. Network/Telecom Engineer strong. Left Upper Extremity: Shoulder flexors 5/5. Shoulder abductors 5/5. Elbow flexors 5/5. Elbow extensors 5/5. Network/Telecom Engineer strong. Right Lower Extremity: Hip flexors 5/5. Hip abductors 5/5. Knee flexors 5/5. Knee extensors 5/5. Ankle dorsiflexors 5/5. Ankle plantarflexors 5/5. Left Lower Extremity:Hip flexors 5/5. Hip abductors 5/5. Knee flexors 3-/5. Knee extensors 3-/5. Ankle dorsiflexors 5/5. Ankle plantarflexors 5/5. Sensation: Intact as to pain and pressure on bilateral lower extremities. Bed Mobility/Transfers: Rolling independent Supine to sit independent Sit to supine independent Sit to stand independent Stand to sit independent Bed to chair supervision Chair to bed supervision Gait: Guided patient through level surface ambulation of 300 feet using front wheeled walker with standby assist, step through gait pattern with WBAT on the right LE with no report of pain, dizziness, and chest pain. THERA EX: Reviewed/educated on home exercise program for TKA protocol that can be safely done at home. Exercise packet provided. Emphasized breaking down supine, seated, and standing level exercises several times a day with lesser repetition and combining with walking activity to minimize fatigue and increase pain level. Balance: Static Sitting: Normal Dynamic Sitting: Normal Static Standing: Good Dynamic Standing: Fair Assessment: Right TKA on POD 1. Chaparro demonstrates the need for a front- wheeled walker for all level surface ambulation and bilateral axillary crutches for his entry steps to reduce fall risk. Patient continues to present with clinical signs and symptoms consistent with current/admitting diagnoses that have resulted to mobility limitations, gait instability, generalized weakness, and impairment of motor control as demonstrated by the following impairment level findings: 1. Decreased strength to right knee major muscle groups 2. Impaired standing balance 3. Impaired activity tolerance 4. Limitation of joint range of motion in right knee Impairments are continuing to contribute to the following functional limitations: 1. Inability to safely ambulate without assistive device 2. Increase completion time for mobility ADL performance Patient is assessed as a 98323 moderate complexity based on the following: History: 75-year-old male in with impairment level findings, functional limitations, and past medical history as indicated above Examination: Demonstrable impairment in strength, balance, and mobility level with underlying impairments and functional limitations as documented above Presentation:Evolving Decision Makin moderate complexity Goals: N/A. PT evaluation 1-2 treatment sessions only for mobility ADL retraining and HEP instruction. Plan of Care/Treatment Plan: N/A. PT evaluation 1-2 treatment sessions only for mobility ADL retraining and HEP instruction. DISCHARGE RECOMMENDATIONS: Home when medically cleared by orthopedic surgeon. Outpatient PT service to facilitate return to community ambulation without an assistive device. TREATMENT CODE/TIME: [place] Thank you for the opportunity to participate in the care of this patient. Ruma Gonzáles PT, DPT, CLT [facility] [place], [place]
== END 2021-01-25 12:51 | disposition home or self-care (01) | DRG 470 ==
LOC: PDS 15:28 → MS 17:16
PROVIDERS: Admitting Provider Student in an Organized Health Care Education/Training Program; PCP Physician Assistant Medical; Visit Provider Student in an Organized Health Care Education/Training Program
PROC: 0SRC0J9 Replacement of Right Knee Joint with Synthetic Substitute, Cemented, Open Approach (ICD-10-PCS; CPT 27447; principal; 2021-01-24 12:30)
DX: M17.31 Unilateral post-traumatic osteoarthritis, right knee (principal); I48.0 Paroxysmal atrial fibrillation; Z79.01 Long term (current) use of anticoagulants; I35.0 Nonrheumatic aortic (valve) stenosis; I10 Essential (primary) hypertension; K21.9 Gastro-esophageal reflux disease without esophagitis
CPT/HCPCS: 27447; 76942; 97162; 97530; NC; J0690; J1100; J1885; J2001; J2370; J2405; J3010

== ENCOUNTER 2021-02-09 10:22 | Outpatient (CLI) | payer OTHER, SELFPAY ==
--- NOTE | 2021-02-09 10:10 | DI.RAD_ITS ---
EXAM: XR KNEE RT 1V and XR standing alignment CLINICAL HISTORY: 1ST POST OP R TKA. TECHNIQUE: 2D digital imaging was performed. COMPARISON: CR XR STANDING ALIGNMENT from 12/26/2020 CR XR STANDING ALIGNMENT from 02/09/2021 FINDINGS: Since the prior examination the patient has undergone a right total knee replacement. The hip joints are well maintained with mild degenerative changes present. The right total knee replacement appear s well maintained. No lucencies are seen in or about the orthopedic hardware. Stable degenerative c hanges are seen in the left knee with joint space narrowing and periarticular spurring in the medial femoral tibial joint space. The ankles appear well maintained. Vascular calcifications are seen in the soft tissues. No significant leg length discrepancy is noted. IMPRESSION: Status post right TKR. DATA REPOSITORY: RADIATION DOSE DELIVERED:
== END 2021-02-09 10:23 | disposition home or self-care (01) ==
LOC: DIORS 10:23
PROVIDERS: PCP Physician Assistant Medical; Referring Provider Physician Assistant Medical; Visit Provider Physician Assistant
DX: Z96.651 Presence of right artificial knee joint (principal)
CPT/HCPCS: 73560; 77073

== ENCOUNTER → 2021-03-10 09:34 | Outpatient (BNVA) | payer OTHER, SELFPAY | PROVIDERS: PCP Physician Assistant Medical; Visit Provider Student in an Organized Health Care Education/Training Program | DX: Z47.1 Aftercare following joint replacement surgery (principal); Z96.651 Presence of right artificial knee joint; T84.82XA Fibrosis due to internal orthopedic prosthetic devices, implants and grafts, initial encounter ==

== ENCOUNTER 2021-03-13 03:41 | Outpatient (CLI) | payer OTHER, SELFPAY ==
[2021-03-13 10:52] LABS: Source Nasal/Nares
[2021-03-13 19:02] LABS: COVID-19 PCR Negative (Negative)
== END 2021-03-13 03:42 | disposition home or self-care (01) ==
LOC: LBO 03:42
PROVIDERS: PCP Physician Assistant Medical; Visit Provider Student in an Organized Health Care Education/Training Program
DX: Z20.822 Contact with and (suspected) exposure to COVID-19 (principal)
CPT/HCPCS: 87635

== ENCOUNTER 2021-03-15 09:39 | Day surgery (SDC) | payer OTHER, SELFPAY ==
[2021-03-15] VITALS (7 sets, daily range): BP systolic 130–170; BP diastolic 56–87; PULSE 53–66; RESP 8–20; TEMP 36.1–36.6; O2SAT 95–98
--- NOTE | 2021-03-15 10:04 | W.PM.DSUDISC ---
Discharge Plan Disposition Patient Disposition: HOME Condition: Good Discharge Details Reason For Visit: Right TKA Manipulation Attending Provider: Zackery Oconnor Primary Care Provider: Katia Valderrama Home Meds and New Rx's Prescriptions: New acetaminophen [Tylenol Extra Strength] 500 mg tablet 500 mg PO Q6H PRNQty: 90 RF: 0 ibuprofen 600 mg tablet 600 mg PO TID Qty: 90 RF: 0 oxycodone 5 mg tablet 5 mg PO Q4H PRNQty: 10 RF: 0 Continued terazosin 5 MG capsule 5 mg PO DAILY RF: 0 metoprolol tartrate 100 MG tablet 100 mg PO DAILY RF: 0 cyanocobalamin (vitamin B-12) [Vitamin B-12] 1,000 MCG tablet 1,000 mcg PO DAILY RF: 0 ascorbic acid (vitamin C) [Vitamin C] 500 MG tablet 500 mg PO DAILY RF: 0 propafenone 225 MG tablet 225 mg PO TID RF: 0 valsartan 320 MG tablet 320 mg PO DAILY RF: 0 niacin 500 MG capsule, extended release 500 mg PO QID RF: 0 Eliquis 5 MG tablet 5 mg PO BID RF: 0 omeprazole 20 MG capsule,delayed release(DR/EC) 20 mg PO DAILY RF: 0 albuterol sulfate 8.5 GM HFA aerosol inhaler 2 puff Inhalation Q4H PRN PRNQty: 1 RF: 0 (DME) AeroChamber Plus Z Stat Sm Msk 1 EACH spacer 1 ea Miscellaneous Q4H PRN Qty: 1 RF: 0 acetaminophen 500 mg tablet 500 mg PO Q6H PRN (Reason: pain) Qty: 60 RF: 2 gabapentin 300 mg capsule 300 mg PO QHS Qty: 14 RF: 0 rosuvastatin 40 mg Tablet 20 mg PO .NOON RF: 0 Discharge Instructions Additional Instructions: Knee Manipulation Discharge Instructions Activity: You should begin moving as soon as possible. You may work on flexion but also equally maintain extension. You may bear weight as tolerated, using crutches only for support/comfort. You should apply ice to help with swelling and elevate when possible (especially in the first few days). Dressings: The knee dressing may come down after 48 hours. You may shower and get the wound wet at that time. You should keep the wounds covered with a bandaid until follow-up. Medications: - Rarely does this require any stronger pain medications however, oxycodone was prescribed for breakthrough pain. - Recommend to take up to 1000mg of Acetaminophen (Tylenol) and 600mg of Ibuprofen (Advil) every 8 hours as needed. These larger strength tablets were called in but you also may use [id number]. Follow-up: 7-10 days Referrals: Zackery Oconnor MD [ [facility] STAFF PHYSICIAN] - Activity:: Activity as Tolerated Diet:: As Tolerated Discharge Orders Discharge Orders: Discharge Order (Routine); Ordered 03/15/21 Ordered By: Charlene Cosme DS: Diagnosis Discharge Diagnosis (1) History of total right knee replacement: Status: Acute (2) Arthrofibrosis of total knee arthroplasty: Status: Acute
[2021-03-15] MEDS: Lactated Ringers 1,000 ML 80 ML IV (10:20)
[2021-03-15] MEDS: Bupivacaine 0.25% Pres-Free 30 ML VIAL (11:13)
--- NOTE | 2021-03-15 12:01 | ROE_ITS ---
Date of service: 03/15/21 Time of Service: 11:40 Operative Note Operative Note DATE OF PROCEDURE: 12/15/19 PRE-OP DIAGNOSIS: Right Knee Arthrofibrosis s/p Replacement POST-OP DIAGNOSIS: same PROCEDURE: Right Knee Manipulation Under Anesthesia SURGEON: Zackery Oconnor ANESTHESIA TYPE: General LMA/ETT Refer to Anesthesia Record ESTIMATED BLOOD LOSS: 0 PATHOLOGY: none sent TOURNIQUET TIME: 0 COMPLICATIONS: None Patient was transported to: PACU Patient's condition: stable Indications: Carlos Manuel is a 75yo male who is s/p knee replacement. Despite diligent work with physical therapy there has been continued stiffness. To assist with mobility, I offered a manipulation under anesthesia. I discussed the risks of the procedure to include bleeding, pain, recurrent stiffness, fracture. Despite these risks, he elects to proceed. Findings: Preoperative flexion = 85 Postoperative flexion = 120 Preoperative extension = 5 Postoperative extension = 5 Procedure Description: The patient is agreed in the preoperative holding area. Identity was confirmed and the correct side was identified and marked. The consent was reviewed the patient and signed. History and physical was updated. Chaparro was taken back to the operating room. The right side was identified as the correct side. A timeout was performed for safe surgery. A general anesthetic was administered. The knee was then prepped with ChloraPrep and an intra-articular injection of 10 cc of 0.5% bupivacaine was administered. Once a muscle relaxant was fully on board manipulation was performed. Pre- manipulation range of motion was noted. A gentle manipulation was performed first into flexion using a very small lever arm and adding gentle and progressive pressure to the tibia. There is audible and palpable crepitus with improvement in range of motion. This was cycled and repeated multiple times. The leg was then brought into extension and gentle anterior posterior pressure was applied with a supported hand behind the proximal tibia and knee. This was brought back into flexion was once again manipulated with gentle and progressive pressure. Final range of motion numbers were recorded. A Band-Aid was applied to the injection site. He was awakened from anesthesia and taken to the PACU in stable condition.
== END 2021-03-15 12:57 | disposition home or self-care (01) ==
PROVIDERS: PCP Physician Assistant Medical; Visit Provider Student in an Organized Health Care Education/Training Program
PROC: (CPT 27570; principal; 2021-03-15 12:15)
DX: T84.82XA Fibrosis due to internal orthopedic prosthetic devices, implants and grafts, initial encounter (principal); Z96.651 Presence of right artificial knee joint; I48.91 Unspecified atrial fibrillation; K21.9 Gastro-esophageal reflux disease without esophagitis
CPT/HCPCS: 27570; J0131; J1100; J1885; J2001; J2250; J2405

== ENCOUNTER → 2021-03-27 13:54 | Outpatient (BNVA) | payer OTHER, SELFPAY | PROVIDERS: PCP Physician Assistant Medical; Referring Provider Physician Assistant Medical; Visit Provider Student in an Organized Health Care Education/Training Program | DX: Z47.89 Encounter for other orthopedic aftercare (principal); T84.82XS Fibrosis due to internal orthopedic prosthetic devices, implants and grafts, sequela ==

== ENCOUNTER 2021-04-12 15:09 | Outpatient (REF) | payer OTHER, SELFPAY ==
[2021-04-12 19:54] LABS: Abs Immature Grans 0.01 10^3/uL (0.0-0.06); Absolute Basophil Count 0.02 10^3/uL (0.0-0.2); Absolute Eosinophil Count 0.19 10^3/uL (0.0-0.7); Absolute Lymphocyte Count 1.37 10^3/uL (1.2-3.4); Absolute Monocyte Count 0.61 10^3/uL (0.1-0.8); Absolute Neutrophil Count 2.21 10^3/uL (1.2-6.7); Basophils % 0.5; Eosinophils % 4.3; HCT 38.3 % (40.0-50.0); HGB 12.9 g/dL (13.5-17.5); Immature Grans % 0.2; Lymphocytes % 31.1; MCH 33.1 pg (27.0-33.0); MCHC 33.7 % (32.0-36.0); MCV 98.2 fL (80-95); MPV 9.1 fL (8.0-11.0); Monocytes % 13.8; Neutrophils % 50.1; Nucleated RBC 0 %; Platelet Count 172 10^3/uL (130-400); RDW 11.2 % (11.8-14.1); RDW-SD 40.7 fL; WBC 4.41 10^3/uL (4.4-10.8)
[2021-04-12 20:15] LABS: Iron 52 ug/dL (65-175); Total Iron Binding Capacity 290 ug/dL (250-450); Transferrin Sat 18 % (20-55)
[2021-04-12 20:28] LABS: Ferritin 137 ng/mL (26-388)
== END 2021-04-12 15:10 | disposition home or self-care (01) ==
LOC: NCHCN 15:09
PROVIDERS: PCP Physician Assistant Medical; Visit Provider Physician Assistant Medical
DX: D64.9 Anemia, unspecified (principal)
CPT/HCPCS: 82728; 83540; 83550; 85025

== ENCOUNTER → 2021-04-24 13:45 | Outpatient (BNVA) | payer OTHER, SELFPAY | PROVIDERS: PCP Physician Assistant Medical; Referring Provider Physician Assistant Medical; Visit Provider Student in an Organized Health Care Education/Training Program | DX: Z47.1 Aftercare following joint replacement surgery (principal); Z96.651 Presence of right artificial knee joint; T84.82XD Fibrosis due to internal orthopedic prosthetic devices, implants and grafts, subsequent encounter | CPT/HCPCS: 99213 ==

== ENCOUNTER 2021-09-12 19:27 | Outpatient (REF) | payer OTHER, SELFPAY ==
[2021-09-14 16:40] LABS: COVID-19 RT-PCR UVMMC Result Negative (Negative)
== END 2021-09-12 19:28 | disposition home or self-care (01) ==
LOC: NCHCN 19:27
PROVIDERS: PCP Physician Assistant Medical; Visit Provider Physician Assistant Medical
DX: Z20.822 Contact with and (suspected) exposure to COVID-19 (principal); J06.9 Acute upper respiratory infection, unspecified
CPT/HCPCS: U0003

== ENCOUNTER → 2021-12-21 09:38 | Outpatient (BNVA) | payer OTHER, SELFPAY | PROVIDERS: PCP Physician Assistant Medical; Referring Provider Physician Assistant Medical; Visit Provider Psychiatry & Neurology Neurology | DX: G56.02 Carpal tunnel syndrome, left upper limb (principal); R20.0 Anesthesia of skin | CPT/HCPCS: 95909; 95910; 99213 ==

== ENCOUNTER → 2022-01-04 10:04 | Outpatient (BNVA) | payer OTHER, SELFPAY | PROVIDERS: PCP Physician Assistant Medical; Referring Provider Physician Assistant Medical; Visit Provider Student in an Organized Health Care Education/Training Program | DX: G56.02 Carpal tunnel syndrome, left upper limb (principal) | CPT/HCPCS: 99213 ==

== ENCOUNTER → 2022-01-10 00:39 | Outpatient (CLI) | payer OTHER, SELFPAY ==
--- NOTE | 2022-01-10 10:32 | DI.US_ITS ---
APPROVED REPORT EXAM: Comprehensive 2D, Doppler, and color-flow Echocardiogram Patient Location: Out-Patient Medical Case Manager: Glenna Dupree RDCS (AE) Indications: High risk medication, Atrial Fibrillation Other Information Study Quality: Adequate Conclusion Left ventricular wall thickness and chamber size. Estimated ejection fraction is 60%. Wall motion i s normal Normal right ventricular size and systolic function The left atrium is mildly dilated. Right atrium is normal in size The aortic valve is trileaflet and mildly sclerotic there is mild aortic stenosis. Peak gradient is 32, mean 18. Calculated aortic valve area is 1.40 cm?? Mild mitral annular calcification. Mild mitral regurgitation Normal tricuspid valve with mild regurgitation. Estimated right ventricular systolic pressure is 32 mmHg Mildly dilated ascending aorta measuring 3.6 cm Wall motion Left Ventricle The left ventricle is normal size. The left ventricular systolic function is normal. The left ventric ular ejection fraction is within the normal range. There is normal left ventricular wall thickness. T here is normal LV segmental wall motion. There is no ventricular septal defect visualized. A muscular VSD is present. A membranous VSD is present. A supracristal VSD is present. No ventricular septal de fect. Ventricular septal defect is present. LVEF is 59%. Right Ventricle The right ventricle is normal size. The right ventricular systolic function is normal. The RVSP is 32 .4 mmHg. Atria Left atrium is mildly dilated. The right atrium size is normal. The interatrial septum is intact with no evidence for an atrial septal defect. Aortic Valve Aortic valve is calcified. Aortic valve is trileaflet. Mild aortic stenosis. Peak aortic valve gradie nt is 31.7mmHg. Highest mean aortic valve gradient is 18.1mmHg. Calculated PETER by the continuity equa tion is 1.40 cm2. No aortic regurgitation is present. Mitral Valve The mitral valve is normal in structure. Mild mitral annular calcification. No evidence of mitral letty ve stenosis. Mild mitral regurgitation. Tricuspid Valve The tricuspid valve is normal in structure. There is no tricuspid valve stenosis. Mild tricuspid regu rgitation. Pulmonic Valve The pulmonary valve is normal in structure. There is no pulmonic valvular stenosis. Trace pulmonic re gurgitation. Great Vessels The aortic root is normal in size. The ascending aorta is mildly dilated. Aortic arch is not well vis ualized. IVC is normal in size and collapses >50% with inspiration. Pericardium There is no pericardial effusion. 2D Dimensions IVSD d PLAX 1.22 cm M: 0.6-1.2 LV Vol A2C d MOD 146.0 mL LVPW d PLAX 1.25 cm M: 0.6 - 1.2 LV Vol A4C d MOD 166.1 mL LVID d PLAX 4.67 cm M: 4.2 - 5.8 LA vol/ BSA A2C s A-L 37.9 mL/m2 LVDs 3.10 cm M: 2.5 - 4.0 LA vol/ BSA A4C s A-L 29.1 mL/m2 Ao Root d 3.24 cm M: 3.1 - 3.7 LA Vol/ BSA Biplane s A-L 33.3 mL/m2 RA Area A4C 21.33 cm2 LA Area A4C s MOD 22.53 cm2 RA Vol/ BSA A4C s A-L 29.7 mL/m2 LA Area A2C s MOD 25.77 cm2 Ao Asc Diam d 3.60 cm M: 2.6 - 3.4 LV EF A4C MOD 59.6 % LV EF Teichholz 61.4 % LV EF A2C MOD 58.6 % LVEF (Vee's) 59.58 % M: 52 - 72 LV EF Biplane MOD 59.6 % LV Volume 113.30 mL M: 62 - 150 SV 93.79 mL LV Volume Index 49.91 mL/m2 M: 34 - 74 SV Index 41.22 mL/m2 LV Vol Biplane MOD 157.4 mL FS 32.90 % M-Mode TAPSE 3.10 cm (M/F) >1.7 LV Diastology MV E' medial 0.099 (>0.07 m/s) E/A Ratio 1.2 LV E/e MED 12.55 (<14) MV E Vmax 1.25 (0.4-1.3 m/s) MV E' lateral 0.112 (>0.1 m/s) MV A Vmax 1.05 (0.4-1.3 m/s) LV E/e LAT 11.10 (<14) MV E/A Ratio 1.14 MV E/E' medial 12.57 MV E/E' lateral 11.11 Aortic Valve LVOT Area 3.29 cm2 AoV Area Vmax 1.40 cm2 LVOT Vmax 1.20 m/s AoV Area/ BSA (Vmax) 0.62 cm2/m2 LVOT Mean Gerber. 0.75 m/s PETER Mean Gerber. 1.23 cm2 LVOT Peak Grad 5.8 mmHg PETER Mean Gerber. Index 0.54 cm2/m2 LVOT Mean Grad 2.7 mmHg LVOT VTI 0.329 m LVOT Diam s 2.00 cm AoV Vmax 2.82 m/s Velocity Ratio 0.42 AoV Mean Gerber. 2.02 m/s AoV Peak Grad 31.7 mmHg LVOT SV 108.27 mL AoV Mean Grad 18.1 mmHg AoV VTI 0.735 m AoV Area VTI 1.47 cm2 AoV Area/ BSA (VTI) 0.65 cm/m2 Mitral Valve MV DT 251 (160-240 msec) MV PHT 73 msec MV Area PHT 3.03 cm2 MV VTI 0.485 m MV VTI Annulus 0.517 m MV Area VTI 2.39 (4.0-6.0 cm2) Pulmonary Valve PV Vmax 1.21 (0.5-1.5 m/s) RVOT Peak Gr. 3.26 mmHg PV Peak Grad 5.8 mmHg RVOT Mean Gr. 1.60 mmHg PV Mean Grad 3.0 mmHg RVOT VTI 0.217 m PV VTI 0.267 m RVOT Vmax 0.90 m/s Tricuspid Valve TR Peak Grad 29.4 mmHg TR Vmax 2.71 m/s RA Pressure 3.00 mmHg RVSP (TR) 32.4 mmHg
== END ==
PROVIDERS: PCP Physician Assistant Medical; Visit Provider Physician Assistant
DX: Z79.899 Other long term (current) drug therapy (principal); I48.20 Chronic atrial fibrillation, unspecified
CPT/HCPCS: 93306

== ENCOUNTER 2022-01-22 02:15 | Outpatient (CLI) | payer MEDICARE, SELFPAY ==
[2022-01-22 12:10] LABS: Source Nasal/Nares
[2022-01-22 17:58] LABS: COVID-19 PCR Negative (Negative)
== END 2022-01-22 02:16 | disposition home or self-care (01) ==
LOC: LBO 02:15
PROVIDERS: PCP Physician Assistant Medical; Visit Provider Student in an Organized Health Care Education/Training Program
DX: Z20.822 Contact with and (suspected) exposure to COVID-19 (principal); Z01.818 Encounter for other preprocedural examination
CPT/HCPCS: 87635; U0005

== ENCOUNTER 2022-01-23 06:04 | Day surgery (SDC) | payer MEDICARE, SELFPAY ==
[2022-01-23 06:15] VITALS: BP 147/76; PULSE 60; RESP 18; TEMP 36.4; O2SAT 98
[2022-01-23] MEDS: Lactated Ringers 1,000 ML 80 ML IV (06:54)
--- NOTE | 2022-01-23 07:06 | W.ANESPRE ---
General Info Date of Service Date Performed: 01/23/22 Height: 5 ft 10 in Weight: 112.8 kg Body Mass Index (BMI): 35.6 Surgical Procedure: Operation Date: 01/23/22 07:40 Proposed Procedure Side Surgeon p Wrist ECTR Left Zackery Oconnor MD Meds Allergies and Home Medications Allergies Allergy/AdvReac Type Severity Reaction Status Date / Time No Known Allergies Allergy Unverified 01/23/22 06:27 Home Medication Medication Instructions Recorded apixaban 5 mg tablet (Eliquis) 5 mg PO BID 12/03/14 niacin 500 mg capsule,extended 500 mg PO QID 12/03/14 release valsartan 320 mg tablet 320 mg PO DAILY 12/03/14 albuterol sulfate 90 mcg/actuation 2 puff INHALATION Q4H PRN PRN #1 12/20/14 aerosol inhaler [id number] inhalational spacing device #1 spacer 12/20/14 (AeroChamber Plus Z Stat Small Mask) acetaminophen 500 mg tablet 500 mg PO Q6H PRN #60 tab 01/24/21 cyclobenzaprine 5 mg tablet 5 mg PO BID PRN #10 tab 03/29/21 famotidine 20 mg tablet 10 mg PO DAILY tab 09/21/21 ferrous sulfate 325 mg (65 mg 325 mg PO DAILY 09/21/21 iron) tablet,delayed release ascorbic acid (vitamin C) 500 mg 1 g PO DAILY tab 12/21/21 tablet (Vitamin C) metoprolol tartrate 75 mg tablet 75 mg PO DAILY 12/21/21 multivitamin 1 tab PO DAILY 12/21/21 propafenone 150 mg tablet 150 mg PO TID 12/21/21 rosuvastatin 20 mg tablet 20 mg PO DAILY 12/21/21 terazosin 5 mg capsule 5 mg PO BID cap 12/21/21 fluticasone propionate 50 1 spray INTRANASAL DAILY 01/04/22 mcg/actuation nasal spray,suspension (Allergy Relief (fluticasone)) Current Visit Medications: Current Medications Generic Name Dose Route Start Last Admin Trade Name Freq PRN Reason Stop Dose Admin Ringer's Solution 1,000 mls @ 80 mls/hr 01/23/22 06:00 01/23/22 06:54 IV 02/21/22 23:59 80 mls/hr INFUSION DONTRELL Administration Cefazolin Sodium/Dextrose 2 gm in 50 mls @ 100 mls/hr 01/23/22 06:00 Ancef Duplex IVPB 01/23/22 16:00 PREOP DONTRELL IV Miscellaneous Supplies 1 each 01/23/22 06:00 Iv Access IV 02/21/22 23:59 DIRECTED DONTRELL Sodium Chloride 0 ml 01/23/22 06:00 Normal Saline Flush 10 Ml Syr IV 02/21/22 23:59 PRN PRN Sodium Chloride 0 ml 01/23/22 06:00 Normal Saline 10 Ml Vial IJ 02/21/22 23:59 DIRECTED PRN Sterile Water 0 ml 01/23/22 06:00 Water,Injection,Sterile 10 Ml Vial IJ 02/21/22 23:59 DIRECTED PRN PFSH Active Problems Active Problems: Problem Status Onset Code Plantar fasciitis, right M72.2 Post-traumatic osteoarthritis of right knee M17.31 Carpal tunnel syndrome, left G56.02 Medical History Medical History Anemia Aortic stenosis Arthrofibrosis of total knee arthroplasty Atrial flutter AV block, 1st degree Foreign body of right shoulder Shrapnel GERD (gastroesophageal reflux disease) History of cardioversion Hx of Lyme disease Hx of mitral valve prolapse Hyperlipidemia Hypertension Obesity Paroxysmal A-fib Sleep apnea Medical History Comments:: Shrapnel in R shoulder ([place] vet) TKA (R) Last dose Eliquis 01/21/22 Surgical History Surgical History 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) Hx of total knee replacement S/P ACL reconstruction (~2004) Right: 2004 S/P hernia surgery Tobacco Smoking/Tobacco Use Status: Former Tobacco Use Alcohol Alcohol Intake: current Alcohol intake frequency: 0-2 drinks per day Alcohol type: beer Substance Use Substance use: Never Substance use type: does not use Vital Signs and Lab Results Vital Signs Most Recent Vital Signs in EMR: Most Recent Vital Signs Temp Pulse Resp BP Pulse Ox 36.4 C L 60 18 147/76 H 98 01/23/22 06:15 01/23/22 06:15 01/23/22 06:15 01/23/22 06:15 01/23/22 06:15 Lab Results Blood Type / Crossmatch: No Data to Display Complete Blood Count: No Data to Display Complete Metabolic Panel: No Data to Display Liver Function Panel: No Data to Display Coagulation Panel: No Data to Display Cardiac Panel: No Data to Display Arterial Blood Gas: No Data to Display Venous Blood Gas: No Data to Display Pancreas Panel: No Data to Display Thyroid Panel: No Data to Display Infectious Disease: Coronavirus (COVID-19)(PCR) Negative (Negative) 01/22/22 09:26 01/22/22 Coronavirus 2019 Source Nasal/Nares 01/22/22 09:26 01/22/22 Blood Cultures: No Data to Display Toxicology Panel: No Data to Display Imaging and Studies Imaging and Studies Study information below may be from another EMR and interpreted by another provider. Please see original notes in EMR for more complete details. Echocardiogram Summary: Conclusion Left ventricular wall thickness and chamber size. Estimated ejection fraction is 60%. Wall motion is normal Normal right ventricular size and systolic function The left atrium is mildly dilated. Right atrium is normal in size The aortic valve is trileaflet and mildly sclerotic there is mild aortic stenosis. Peak gradient is 32, mean 18. Calculated aortic valve area is 1.40 cm?? Mild mitral annular calcification. Mild mitral regurgitation Normal tricuspid valve with mild regurgitation. Estimated right ventricular systolic pressure is 32 mmHg Mildly dilated ascending aorta measuring 3.6 cm Anesthesia Assessment and Plan Anesthesia History Personal History: No History of Anesthesia Complications Family History: No Family History of Anesthesia Complications Exercise Tolerance Exercise Tolerance: Metabolic Equivalents>4 Pertinent Negatives Pertinent Negatives: No Symptoms of GERD Cardiac & Pulmonary Exam Cardiac Exam: Normal S1/S2 Heart Sounds Pulmonary Exam: Clear Bilateral Breath Sounds Implantable Cardiac Device Does patient have a Pacemaker or an ICD?: No Airway Exam Known Difficult Airway: No Mallampati Class: 2 Mouth Opening: Normal (> 3cm) Thyromental Distance: Greater than 3 cm Neck Range of Motion: Full ROM Neck Circumference: Normal Teeth Condition: Normal Dentition Tooth Numberin. broken per patient ASA Classification ASA Score: ASA 3 Emergency Case?: No NPO Status NPO Status: NPO Clears >2 hours, Solids >8 hours Anesthesia Plan Resuscitation Status: Full Code Anesthesia Technique: General Anesthesia Airway Planned: Natural Airway Monitors Used: Standard Monitors
[2022-01-23 07:19] VITALS: BMI 35.6
--- NOTE | 2022-01-23 07:28 | W.PM.DSUDISC ---
Discharge Plan Disposition Patient Disposition: HOME Condition: Good Discharge Details Reason For Visit: L ECTR Attending Provider: Zackery Oconnor Primary Care Provider: Katia Valderrama Home Meds and New Rx's Prescriptions: New acetaminophen 500 mg tablet 1,000 mg PO TID Qty: 90 0RF Continued cyclobenzaprine 5 mg tablet 5 mg PO BID PRN (Reason: muscle spasm) Qty: 10 0RF fluticasone propionate [Allergy Relief (fluticasone)] 50 mcg/actuation spray,suspension 1 spray intranasal DAILY 0RF Rx Instructions: administer into each nostril multivitamin Tablet 1 tab PO DAILY 0RF metoprolol tartrate 75 mg tablet 75 mg PO DAILY 0RF rosuvastatin 20 mg tablet 20 mg PO DAILY 0RF famotidine 20 mg tablet 10 mg PO DAILY 0RF ferrous sulfate 325 mg (65 mg iron) tablet,delayed release (DR/EC) 325 mg PO DAILY 0RF Rx Instructions: Take 1 tablet by mouth once a day dose with vitamin C for improved absorption. propafenone 150 mg tablet 150 mg PO TID 0RF Label Comments: states he takes 125mg TID but doesn't come in that size Rx Instructions: space evenly during waking hours valsartan 320 MG tablet 320 mg PO DAILY 0RF Label Comments: pt. unsure of AM meds he took niacin 500 MG capsule, extended release 500 mg PO QID 0RF Eliquis 5 MG tablet 5 mg PO BID 0RF Label Comments: pt. reports taking morning dose but not night dose ascorbic acid (vitamin C) [Vitamin C] 500 mg tablet 1 g PO DAILY 0RF terazosin 5 mg capsule 5 mg PO BID 0RF albuterol sulfate 8.5 GM HFA aerosol inhaler 2 puff Inhalation Q4H PRN PRNQty: 1 0RF (DME) AeroChamber Plus Z Stat Sm Msk 1 EACH spacer 1 ea Miscellaneous Q4H PRN Qty: 1 0RF Discontinued acetaminophen 500 mg tablet 500 mg PO Q6H PRN (Reason: pain) Qty: 60 2RF Discharge Instructions Stand Alone Forms: Elvin Perez Tunnel Release Referrals: Zackery Oconnor MD [ [facility] STAFF PHYSICIAN] - Activity:: Activity as Tolerated Remove Dressings/Wound Care:: 48 hours Shower/Bathe:: 48 hours Diet:: As Tolerated Discharge Orders Discharge Orders: Discharge Order (Routine); Ordered 01/23/22 Ordered By: Bruce Rubio DS: Diagnosis Discharge Diagnosis (1) Carpal tunnel syndrome, left: Status: Acute
[2022-01-23] MEDS: ceFAZolin 2 GM/50 ML BAG IVPB (07:33)
[2022-01-23] MEDS: Sodium Bicarbonate 50 MEQ/50 ML VIAL (07:35)
[2022-01-23] MEDS: Lidocaine 1% Multi-Dose 50 ML VIAL (07:35)
[2022-01-23 07:48] VITALS: BP 110/59; PULSE 59; RESP 16; TEMP 36.6; O2SAT 98
--- NOTE | 2022-01-23 07:59 | W.ANESPOSTOP ---
Postoperative Evaluation Date, Time and Location Date Performed: 01/23/22 Time Performed: 07:48 Patient Location: Day Surgery Unit Vital Signs Most Recent Imported Vital Signs: Most Recent Vital Signs Temp Pulse Resp BP Pulse Ox 36.6 C 59 L 16 110/59 L 98 01/23/22 07:48 01/23/22 07:48 01/23/22 07:48 01/23/22 07:48 01/23/22 07:48 Pain Score Most Recent Pain Score: Most Recent Pain Score Pain Level 0 01/23/22 07:48 Assessment Mental Status: Awake (Alert & Oriented to Patient Baseline) Airway and Respiratory Function: Patent airway with normal (patient baseline) respiratory exam Cardiovascular Function: Hemodynamically Stable Hydration Status: Adequately Hydrated Nausea & Vomiting: No Nausea or Vomiting Pain: Pt. Denies Any Pain Peripheral Nerve Block: Patient did not receive a nerve block
[2022-01-23 08:18] VITALS: BP 151/70; PULSE 57; TEMP 36.4; O2SAT 97
--- NOTE | 2022-01-23 08:20 | W.PM.OP ---
Date of service: 01/23/22 Time of Service: 07:46 Operative Note Operative Note PRE-OP DIAGNOSIS: Left Carpal Tunnel Syndrome POST-OP DIAGNOSIS: same PROCEDURE: Left Endoscopic Carpal Tunnel Release SURGEON: Zackery Oconnor ANESTHESIA TYPE: General:No Airway Refer to Anesthesia Record ESTIMATED BLOOD LOSS: 0 PATHOLOGY: none sent TOURNIQUET TIME: 6 COMPLICATIONS: None Patient was transported to: same day Patient's condition: stable Indications: I have seen Chaparro in clinic for symptoms of carpal tunnel syndrome. The numbness, tingling, and pain limited function. Clinical exam findings with nerve conduction tests confirmed the diagnosis of carpal tunnel syndrome. Nonoperative measures such as bracing, time, activity modifications had been tried but disability and pain persisted. I discussed carpal tunnel release with the patient. I reviewed the risks of the procedure to include, but not limited to, bleeding, infection, pain, stiffness, incomplete release, damage to nerves or vessels, persistent numbness, recurrence. Despite these risks, the patient elected to proceed. Findings: There was tightened carpal tunnel. This was dilated and released successfully with the endoscopic with increased space within the tunnel. The antebrachial fascia was released proximally freeing the median nerve at the wrist. Procedure Description: Chaparro was greeted in the preoperative holding area where the correct side was identified and marked. The consent was reviewed with the patient and signed. The history and physical was updated. All questions were answered. He was taken back to the operating room. The patient was placed into the supine position on the operating room table with the left arm on an arm board. A nonsterile tourniquet was placed high onto the arm. All bony prominences were well padded. Prophylactic antibiotics in the form of Cefazolin were administered. The left arm was then prepped with Chloraprep and draped in a standard fashion with stockinette and extremity drape. A timeout to confirm correct identity, side and site, procedure, allergies, anesthesia, and medical concerns was performed. The surgical site was marked in the volar wrist creases in line with the radial border of the fourth ray. This area was anesthetized with approximately 6cc of 1% Lidocaine. The limb was then exsanguinated with an Esmarch. The skin was incised with a 15 blade, approximately 1cm. The skin only was cut and the deeper tissue was dissected bluntly with a tenotomy scissor, avoiding passing nerve and venous structures. The fascia was penetrated and opened bluntly. A two-prong skin hook was placed under this proximal fascial edge. A series of hamate finders were used to identify and dilate the carpal tunnel. Synovial elevator was used to free synovial attachments to the underside of the transverse carpal ligament. My thumb was kept in the palm to pratima the distal extent of the carpal tunnel and correctly position the hand. The [employer] endoscope was inserted without difficulty and without resistance. Excellent visualization showed horizontally running fibers of the transverse carpal ligament (TCL). The distal extent of the TCL was visualized and the end of the scope palpated with the thumb. The blade was elevated and withdrawn from distal to proximal. The TCL was split into two flaps. The endoscope was reinserted to confirm complete release and any remnant ligament was incised. The scope was withdrawn and the proximal aspect of the carpal tunnel was grossly inspected and appeared release with the median nerve visible. The antebrachial fascia at the level of the wrist was then freed from the overlying skin and then the underlying median nerve with blunt dissection. This was transected longitudinally for about 3cm proximal to the wrist incision. The wound was then irrigated with easy flow of irrigant distally and proximally. The incision was closed with a single 4-0 Nylon suture. The wound was dressed with Xeroform, Gauze, Kerlix and Vernon. The tourniquet was deflated with the initial dressing and held with some pressure. Blood flow returned easily to all digits with capillary refill less than 2 seconds. The patient tolerated the procedure well and was returned to the Same Day Surgery area in a stable condition suffering no known complication.
== END 2022-01-23 08:47 | disposition home or self-care (01) ==
PROVIDERS: PCP Physician Assistant Medical; Visit Provider Student in an Organized Health Care Education/Training Program
PROC: 01N54ZZ Release Median Nerve, Percutaneous Endoscopic Approach (ICD-10-PCS; CPT 29848; principal; 2022-01-23 07:30)
DX: G56.02 Carpal tunnel syndrome, left upper limb (principal); I48.0 Paroxysmal atrial fibrillation; Z79.01 Long term (current) use of anticoagulants; I10 Essential (primary) hypertension; D64.9 Anemia, unspecified; G47.30 Sleep apnea, unspecified; I48.92 Unspecified atrial flutter
CPT/HCPCS: 29848; J0690

== ENCOUNTER → 2022-02-01 08:47 | Outpatient (BNVA) | payer MEDICARE, SELFPAY | PROVIDERS: PCP Physician Assistant Medical; Referring Provider Physician Assistant Medical | DX: G56.02 Carpal tunnel syndrome, left upper limb (principal) ==

== ENCOUNTER → 2022-02-16 07:54 | Outpatient (BNVA) | payer MEDICARE, SELFPAY | PROVIDERS: PCP Physician Assistant Medical; Referring Provider Physician Assistant Medical | DX: G56.02 Carpal tunnel syndrome, left upper limb (principal) | CPT/HCPCS: 99212 ==

== ENCOUNTER 2022-04-02 09:27 | Outpatient (CLI) | payer MEDICARE, SELFPAY ==
--- NOTE | 2022-04-02 08:45 | DI.RAD_ITS ---
Exam(s) XR KNEE RT 2V AP,LAT EXAM: XR KNEE RT 2V AP,LAT INDICATION: annual f/u R TKA. COMPARISON: CR XR KNEE RT 1V from 02/09/2021 CR XR STANDING ALIGNMENT from 02/09/2021 TECHNIQUE: 2D digital imaging was performed. Two views. FINDINGS: There has been no change in the appearance of the total knee prosthesis or appearance of the surround ing bone. Vascular calcifications are again noted. DATA REPOSITORY: RADIATION DOSE DELIVERED:
== END 2022-04-02 09:28 | disposition home or self-care (01) ==
LOC: DIORS 09:27
PROVIDERS: PCP Physician Assistant Medical; Referring Provider Physician Assistant Medical; Visit Provider Student in an Organized Health Care Education/Training Program
DX: M17.31 Unilateral post-traumatic osteoarthritis, right knee (principal); Z96.651 Presence of right artificial knee joint
CPT/HCPCS: 99213; 73560

== ENCOUNTER 2022-06-29 18:12 | Outpatient (REF) | payer MEDICARE, SELFPAY ==
[2022-06-29 17:16] LABS: Abs Immature Grans 0.01 10^3/uL (0.0-0.06); Absolute Basophil Count 0.02 10^3/uL (0.0-0.2); Absolute Eosinophil Count 0.17 10^3/uL (0.0-0.7); Absolute Lymphocyte Count 1.21 10^3/uL (1.2-3.4); Absolute Monocyte Count 0.55 10^3/uL (0.1-0.8); Absolute Neutrophil Count 2.31 10^3/uL (1.2-6.7); Basophils % 0.5; HCT 39.3 % (40.0-50.0); HGB 13.2 g/dL (13.5-17.5); Immature Grans % 0.2; Lymphocytes % 28.3; MCH 33.4 pg (27.0-33.0); MCHC 33.6 % (32.0-36.0); MCV 100 fL (80-95); MPV 9.8 fL (8.0-11.0); Monocytes % 12.9; Neutrophils % 54.1; Platelet Count 146 10^3/uL (130-400); RBC 3.95 10^6/uL (4.36-5.78); RDW 11.3 % (11.8-14.1); RDW-SD 41.3 fL; WBC 4.27 10^3/uL (4.4-10.8)
[2022-06-29 17:24] LABS: Iron 131 ug/dL (65-175); Total Iron Binding Capacity 274 ug/dL (250-450); Transferrin Sat 48 % (20-55)
[2022-06-29 17:36] LABS: Calculated LDL 66 mg/dL (<100); Cholesterol 125 mg/dL (<200); Ferritin 215 ng/mL (26-388); HDL Cholesterol 50 mg/dL (40-60); Triglyceride 46 mg/dL (<150)
[2022-07-02 09:46] LABS: PSA, Screening 0.4 ng/mL (<=6.5)
== END 2022-06-29 18:13 | disposition home or self-care (01) ==
LOC: NCHCN 18:12
PROVIDERS: PCP Physician Assistant Medical; Visit Provider Physician Assistant Medical
DX: D64.9 Anemia, unspecified (principal); I10 Essential (primary) hypertension; Z12.5 Encounter for screening for malignant neoplasm of prostate
CPT/HCPCS: 80061; 84153; 82728; 83540; 83550; 85025

== ENCOUNTER 2023-04-28 09:47 | Emergency (ER) | payer MEDICARE, SELFPAY ==
[2023-04-28 09:52] VITALS: TEMP 36.2
--- NOTE | 2023-04-28 10:07 | ED.GENADUL_ITS ---
Discharge Plan Disposition Patient Disposition: Home Condition: Stable Discharge Details Clinical Impression: Tick bite Primary Care Provider: Katia Valderrama ED Provider: Jaime Smiley Home Meds and New Rx's Prescriptions: Continued cyclobenzaprine 5 mg tablet 5 mg PO BID PRN (Reason: muscle spasm) Qty: 10 0RF fluticasone propionate [Allergy Relief (fluticasone)] 50 mcg/actuation spray,suspension 1 spray intranasal DAILY Rx Instructions: administer into each nostril multivitamin Tablet 1 tab PO DAILY metoprolol tartrate 75 mg tablet 75 mg PO DAILY rosuvastatin 20 mg tablet 20 mg PO DAILY famotidine 20 mg tablet 10 mg PO DAILY ferrous sulfate 325 mg (65 mg iron) tablet,delayed release (DR/EC) 325 mg PO DAILY Rx Instructions: Take 1 tablet by mouth once a day dose with vitamin C for improved absorption. propafenone 150 mg tablet 150 mg PO TID Patient Comments: states he takes 125mg TID but doesn't come in that size Rx Instructions: space evenly during waking hours valsartan 320 MG tablet 320 mg PO DAILY Patient Comments: pt. unsure of AM meds he took niacin 500 MG capsule, extended release 500 mg PO QID Eliquis 5 MG tablet 5 mg PO BID Patient Comments: pt. reports taking morning dose but not night dose ascorbic acid (vitamin C) [Vitamin C] 500 mg tablet 1 g PO DAILY terazosin 5 mg capsule 5 mg PO BID albuterol sulfate 8.5 GM HFA aerosol inhaler 2 puff Inhalation Q4H PRN PRNQty: 1 0RF (DME) AeroChamber Plus Z Stat Sm Msk 1 EACH spacer 1 ea Miscellaneous Q4H PRN Qty: 1 0RF acetaminophen 500 mg tablet 1,000 mg PO TID Qty: 90 0RF Discharge Instructions Instructions: Tick Bite (ED) Additional Instructions: if you develop fevers, spreading redness or feel more ill return to the emergency department Medical Decision Making 77 yo male comes in after he noticed a tick on his left lower abdomen this morning which he removed but noticed a retained part of it in the skin so came here. He thinks it attached last night, no systemic symptoms, no fevers or chills or joint pain. No rashes. He has a small tick head in the left lower abdomen that I removed uneventfully with tweezers. HE is stable for d/c, will provide prophylactic dose of doxy, return precautions given Differential Diagnosis Differential Diagnosis: tick bite HPI General Mode of arrival: ambulatory . Date/Time Provider Initiated Documentation: 04/28/23 09:55 . Limitations to Documentation: no limitations . Information obtained by: patient . History of Present Illness 77 year old M presents to the emergency department with the chief complaint of tick on left lower abdomen, described as mild, Patient started experiencing this hour(s) (1) No relieving factors improve symptom(s), No exacerbating factors reported . Patient notes no other symptoms.. Related Data Home Medications Medication Instructions Recorded Confirmed apixaban 5 mg tablet (Eliquis) 5 mg PO BID 12/03/14 04/28/23 niacin 500 mg capsule,extended 500 mg PO QID 12/03/14 04/28/23 release valsartan 320 mg tablet 320 mg PO DAILY 12/03/14 04/28/23 albuterol sulfate 90 mcg/actuation 2 puff inhalation Q4H PRN PRN ##1 12/20/14 04/28/23 aerosol inhaler inhalational spacing device ##1 12/20/14 04/28/23 (AeroChamber Plus Z Stat Small Mask) cyclobenzaprine 5 mg tablet 5 mg PO BID PRN muscle spasm #10 03/29/21 04/28/23 tabs famotidine 20 mg tablet 10 mg PO DAILY 09/21/21 04/28/23 ferrous sulfate 325 mg (65 mg 325 mg PO DAILY 09/21/21 04/28/23 iron) tablet,delayed release ascorbic acid (vitamin C) 500 mg 1 g PO DAILY 12/21/21 04/28/23 tablet (Vitamin C) metoprolol tartrate 75 mg tablet 75 mg PO DAILY 12/21/21 04/28/23 multivitamin 1 tab PO DAILY 12/21/21 04/28/23 propafenone 150 mg tablet 150 mg PO TID 12/21/21 04/28/23 rosuvastatin 20 mg tablet 20 mg PO DAILY 12/21/21 04/28/23 terazosin 5 mg capsule 5 mg PO BID 12/21/21 04/28/23 fluticasone propionate 50 1 spray intranasal DAILY 01/04/22 04/28/23 mcg/actuation nasal spray,suspension (Allergy Relief (fluticasone)) acetaminophen 500 mg tablet 1,000 mg PO TID #90 tabs 01/23/22 04/28/23 Previous Rx's Medication Instructions Recorded albuterol sulfate 90 mcg/actuation 2 puff inhalation Q4H PRN PRN ##1 12/20/14 aerosol inhaler inhalational spacing device ##1 12/20/14 (AeroChamber Plus Z Stat Small Mask) cyclobenzaprine 5 mg tablet 5 mg PO BID PRN muscle spasm #10 03/29/21 tabs acetaminophen 500 mg tablet 1,000 mg PO TID #90 tabs 01/23/22 Allergies Allergy/AdvReac Type Severity Reaction Status Date / Time No Known Allergies Allergy Unverified 02/01/22 08:51 General Stated Complaint: AnimalBite KAMRYN: 4 Review of Systems All systems reviewed & are unremarkable except as noted in HPI and below Constitutional Constitutional: Denies chills, Denies fever(s) and Denies weakness Cardiovascular Cardiovascular: Denies chest pain and Denies dyspnea Respiratory Respiratory: Denies cough and Denies dyspnea Gastrointestinal Gastrointestinal: Denies abdominal pain, Denies nausea and Denies vomiting Integumentary/Breasts Skin/Breast: Denies rash Neurologic Neurologic: Denies weakness PFSH All Active Problems (Updated 04/28/23 @ 10:11 by Jaime Smiley MD) Tick bite (Acute) Plantar fasciitis, right (Acute) Medical History (Updated 04/28/23 @ 10:11 by Jaime Smiley MD) Anemia Aortic stenosis Arthrofibrosis of total knee arthroplasty Atrial flutter AV block, 1st degree Foreign body of right shoulder Shrapnel GERD (gastroesophageal reflux disease) History of cardioversion Hx of Lyme disease Hx of mitral valve prolapse Hyperlipidemia Hypertension Obesity Paroxysmal A-fib Sleep apnea Surgical History (Updated 04/02/22 @ 09:12 by SRIKANTH Rojas) Carpal tunnel syndrome, left S/P ECTR: 01/23/22 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) Hx of total knee replacement S/P ACL reconstruction (~2004) Right: 2004 S/P hernia surgery Family History Father Hypertension Heart disease Daughter Hypertension Other Hyperlipidemia Social History Smoking/Tobacco Use Status: Former Tobacco Use Quit Date: 12/02/67 Smoking risk assessment performed?: Yes Alcohol Intake: current Alcohol Intake frequency: 0-2 drinks per day Alcohol type: beer Drug use: Never Substance use type: does not use Household members: spouse Number of Children: 2 current occupation: Retired [employer] business Current gender identity: male Do you feel safe at home: Yes Do you feel safe in your relationship?: Yes Additional Social history: unabel to assess privatley Exam Const General: no acute distress Orientation: alert HENMT Head: normal to inspection Ears: external ears normal General nose exam: external nose normal Mouth: moist mucous membranes Eyes General: appearance normal, both eyes and all related structures Neck Neck: normal visual inspection Resp Effort & Inspection: normal respiratory effort and able to speak in complete sentences Cardio Rate: regular rate Skin General skin exam: no rashes or lesions noted Neuro General: patient alert and patient oriented x3 Extrem General: normal to inspection Psych Mental Status: mental status grossly normal Course Vital Signs Vital signs: Vital Signs Temperature 36.2 C L 04/28/23 09:52 Temperature 36.2 C L 04/28/23 09:52 Temperature Source Oral 04/28/23 09:52
[2023-04-28] MEDS: Doxycycline Hyclate 100 MG CAP 200 MG PO (10:11)
== END 2023-04-28 10:23 | disposition home or self-care (01) ==
PROVIDERS: Emergency Provider Emergency Medicine; PCP Physician Assistant Medical
DX: S30.861A Insect bite (nonvenomous) of abdominal wall, initial encounter (principal); W57.XXXA Bitten or stung by nonvenomous insect and other nonvenomous arthropods, initial encounter
CPT/HCPCS: 99283; 99282